=== PATIENT | male | born 1990 | race Two or more races ===

== ENCOUNTER 2018-05-03 22:10 | Emergency (ER) | payer MEDICAID ==
[~2018-05-03] VITALS: Ht 180.3 cm; Wt 116.2 kg
[2018-05-03 22:18] VITALS: BP 150/96
[2018-05-03] MEDS ORDERED: HYDROcodone/APAP 5/325 TABLET ONE (23:26)
[2018-05-03] MEDS ORDERED: IBUPROFEN 200 MG TABLET ONE (23:27)
[2018-05-03] MEDS ORDERED: HYDROcodone/APAP 5/325 TABLET PO ONE (23:30)
[2018-05-03] MEDS ORDERED: IBUPROFEN 800 MG TABLET PO ONE (23:30)
== END 2018-05-03 23:48 | disposition home or self-care (01) ==
LOC: ED 23:42
DX: K04.7 Periapical abscess without sinus (principal); K08.89 Other specified disorders of teeth and supporting structures
CPT/HCPCS: 99283

== ENCOUNTER 2018-09-25 13:44 | Emergency (ER) | payer MEDICAID, OTHER ==
[~2018-09-25] VITALS: Ht 182.9 cm; Wt 114.2 kg
--- NOTE | 2018-09-25 14:00 | NUR ---
First contact with pt. [facility]. Pt has family member at bedside. Pt denies trauma. 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 Pt states, "For a month I have had this weakness and tingling and loss of strength in my arm that goes through my whole body. (left arm)." EDMD at bedside. Pt connected to NIBP and continous pulse ox.
[2018-09-25 14:14] VITALS: BP 141/87
--- NOTE | 2018-09-25 14:15 | NUR ---
Pt transported [place].
[2018-09-25 14:22] LABS: BASOPHILS # (AUTO) 0.02 x10^3/uL (0-0.1); BASOPHILS % (AUTO) 0 % (0-1); EOSINOPHILS # (AUTO) 0.11 x10^3/uL (0-0.4); EOSINOPHILS % (AUTO) 1 % (1-7); LYMPHOCYTES # (AUTO) 1.81 x10^3/uL (1-3.4); LYMPHOCYTES % (AUTO) 23 % (22-44); MD NO; MEAN CORPUSCULAR VOLUME 91.3 fL (81-97); MEAN PLATELET VOLUME 8.5 fL (7.4-10.4); MONOCYTES # (AUTO) 0.73 x10^3/uL (0.2-0.8); MONOCYTES % (AUTO) 9 % (2-9); NEUTROPHILS # (AUTO) 5.31 x10^3/uL (1.8-6.8); NEUTROPHILS % (AUTO) 67 % (42-75); PLATELET COUNT 277 x10^3/uL (130-400); RED BLOOD COUNT 5.15 x10^6/uL (4.38-5.82); RED CELL DISTRIBUTION WIDTH 13.5 % (9.4-14.8)
[2018-09-25 14:27] LABS: ANION GAP 8 mmol/L (5-15); CALCIUM 8.4 mg/dL (8.5-10.1); CHLORIDE 106 mmol/L (98-107); CREATININE 0.94 mg/dL (0.7-1.3)
--- NOTE | 2018-09-25 14:49 | NUR ---
Patient given discharge instructions and they have confirmed that they understand the instructions. Patient ambulatory with steady gait. Pt left with discharge paperwork, prescription, and all personal belongings.
== END 2018-09-25 14:51 | disposition home or self-care (01) ==
LOC: ED 14:37
DX: R20.2 Paresthesia of skin (principal); R51 Headache
CPT/HCPCS: 36415; 70450; 80048; 82040; 85025; 99284

== ENCOUNTER 2020-05-04 19:48 | Emergency (ER) | payer SELFPAY ==
[~2020-05-04] VITALS: Ht 180.3 cm; Wt 113.0 kg
--- NOTE | 2020-05-04 20:00 | NUR ---
triage note: EKG done in triage
--- NOTE | 2020-05-04 20:18 | NUR ---
PT STATES HAVING FATIGUE, BODY ACHES, INTERMITTENT PAINS AROUND BODY THAT STARTED "A WHILE AGO". PT STATES HAVING CHEST PAIN/PRESSUE STARTING TODAY AND NOT GETTING BETTER THROUGHOUT THE DAY. PT UNABLE TO GIVE ME EXACT TIMES. PT RESTLESS IN BED, DIAPHORETIC, FLUSHED FACE, AND STATES HAVING A HEADACHE WELL. PT PLACED ON ALL MONITORS, ERP EVAL AT BEDSIDE
--- NOTE | 2020-05-04 20:35 | NUR ---
IV PLACED, LABS DRAWN, AND XRAY AT BEDSIDE
[2020-05-04 20:42] LABS: BASOPHILS # (AUTO) 0.04 x10^3/uL (0-0.1); BASOPHILS % (AUTO) 0 % (0-1); EOSINOPHILS % (AUTO) 1 % (1-7); LYMPHOCYTES # (AUTO) 2.23 x10^3/uL (1-3.4); LYMPHOCYTES % (AUTO) 24 % (22-44); MD NO; MEAN CORPUSCULAR HEMOGLOBIN 31.7 pg (27.5-34.5); MEAN PLATELET VOLUME 8.6 fL (7.4-10.4); MONOCYTES # (AUTO) 0.85 x10^3/uL (0.2-0.8); MONOCYTES % (AUTO) 9 % (2-9); NEUTROPHILS # (AUTO) 5.91 x10^3/uL (1.8-6.8); NEUTROPHILS % (AUTO) 65 % (42-75); PLATELET COUNT 285 x10^3/uL (130-400); RED BLOOD COUNT 5.18 x10^6/uL (4.38-5.82); RED CELL DISTRIBUTION WIDTH 13.2 % (9.4-14.8)
[2020-05-04 20:50] LABS: ALANINE AMINOTRANSFERASE 100 U/L (12-78); ALBUMIN 4.2 g/dL (3.4-5.0); ANION GAP 8 mmol/L (5-15); CALCIUM 9.3 mg/dL (8.5-10.1); CHLORIDE 106 mmol/L (98-107); CREATININE 1.31 mg/dL (0.7-1.3)
[2020-05-04 20:55] LABS: ALKALINE PHOSPHATASE 125 U/L (45-117); BILIRUBIN,TOTAL 0.7 mg/dL (0.2-1.0); TOTAL PROTEIN 8.6 g/dL (6.4-8.2); TROPONIN I < 0.015 ng/mL (0.000-0.045)
[2020-05-04] MEDS ORDERED: FAMOTIDINE 20 MG TABLET PO ONE (21:00)
[2020-05-04] MEDS ORDERED: FAMOTIDINE 20 MG TABLET ONE (21:09)
[2020-05-04 21:16] LABS: FREE T4 (FREE THYROXINE) 1.24 ng/dL (0.76-1.46)
[2020-05-04 21:19] VITALS: BP 129/90
[2020-05-04] MEDS ORDERED: ACETAMINOPHEN 500 MG TABLET ONE (21:51)
[2020-05-04] MEDS ORDERED: ACETAMINOPHEN 500 MG TABLET PO ONE (22:00)
== END 2020-05-04 22:02 | disposition home or self-care (01) ==
LOC: ED 21:26
DX: R07.89 Other chest pain (principal); R51 Headache; R53.1 Weakness; R25.2 Cramp and spasm; R94.31 Abnormal electrocardiogram [ECG] [EKG]
CPT/HCPCS: 36415; 71046; 80053; 82330; 83735; 84439; 84443; 84484; 85025; 93005; 99285